=== PATIENT | female | born 1965 | race Caucasian/White ===

== ENCOUNTER → 2016-06-28 | Outpatient (CLI) | payer BC ==
[~2016-06-28] MED LIST: ASPIRIN81 M2 PO; AUGMENTIN875 MG PO; CIPRO750 MG PO; CIPRODEX OTIC7.5 ML; GLUCOPHAGE XR500 MG PO; GUAIATUSSIN AC L5 ML PO; HYDROGESIC 5/501 CAP PO; LEVAQUIN750 MG PO; MOTRIN600 MG PO; NEURONTIN PO; NORCO 5/325 TAB1 TAB PO; OMEPRAZOLE40 M1 PO; PRILOSEC PO; VENLAFAXINE HCL75 M2 PO; VISTARIL PO; WAL-PROFEN200 M1 PO; ZANAFLEX4 M1 PO; ZOCOR PO; ZOCOR20 MG PO; ZYRTEC10 M2 PO
--- NOTE | ~2016-06-28 | MY11 ---
[facility] A Service [facility] RADIOLOGY TEXT RESULTS PATIENT: STEF LORENZO LOCATION: [facility] : 67 UNIT #: [id number] AGE: [address]: Sasha Valenzuela APRN SEX: F ORDER DR: [id number] [address] [address] [id number] O MR#: [id number] Acc #: [id number] NAME: STEF LORENZO : 1965 SEX: F STUDY DATE/TIME: 06/28/2016 9:49 UNIT: [facility] ROOM: STUDY DESCRIPTION: MY Mammogram Screening Dig Zachery Attending Physician: Sasha Valenzuela A.P.R.N. Referring Physician: Sasha Valenzuela A.P.R.N. Ordering Physician: Elidia Miranda Primary Care Physician: Aleena Hobbs M.D. MEDICAL IMAGING REPORT This report is preliminary unless electronic signature is present. EXAM Bilateral digital screening mammogram with CAD device 06/28/2016 HISTORY Routine screening. FINDINGS Digital imaging of each breast was completed utilizing a two-view examination of each breast in craniocaudal and mediolateral-oblique projections. Review and interpretation of digital mammograms include a second review in conjunction with FDA-approved CAD device. There is a normal parenchymal presentation bilaterally consistent with the patient's age. There are no breast masses imaged and no parenchymal asymmetry is visualized. There are no suspicious microcalcifications and I see no focal architectural disturbance. IMPRESSION Negative screening digital mammogram. One-year followup recommended. Patients over the age of 40 are entered into a reminder system with target due date for the next mammogram. A result letter will also be sent to the patient. BIRADS: 1 Negative Dictated by... Elías Phelps M.D. [facility] A Service [facility] RADIOLOGY TEXT RESULTS PATIENT: STEF LORENZO LOCATION: [facility] : 67 UNIT #: [id number] AGE: [address]: Sasha Valenzuela APRN SEX: F ORDER DR: THIS IS AN ELECTRONICALLY VERIFIED REPORT Elías Phelps M.D. at 06/29/2016 8:27 AM KRT/to TD: 06/28/2016 12:33 JOB #: [id number] MEDICAL IMAGING REPORT Page 1 of 1
== END | disposition home or self-care (01) ==
LOC: SMAM 08:57
DX: Z12.31 Encounter for screening mammogram for malignant neoplasm of breast (principal)
CPT/HCPCS: G0202